=== PATIENT | male | born 1940 | race Caucasian/White ===

== ENCOUNTER 2024-04-03 10:09 | Outpatient (CLI) | payer MEDICARE, SELFPAY ==
--- NOTE | 2024-04-03 10:24 | XRR_ITS ---
PROCEDURE INFORMATION: Exam: XR Lumbosacral Spine Exam date and time: 04/03/2024 10:57 AM Age: 84 years old Clinical indication: Low back pain; Prior surgery; Surgery date: 1-6 months; Surgery type: Laminectomy; Additional info: Postlaminectomy syndrome TECHNIQUE: Imaging protocol: Radiologic exam of the lumbosacral spine. Views: 6 or more views. Including flexion and extension views. COMPARISON: No relevant prior studies available. FINDINGS: Bones/joints: Lower lumbar spine postsurgical change with intact bilateral posterior rods and hooks from L4-S1 without evidence of hardware complication. Mild posterior wedge morphology of the L5 vertebral body is age indeterminate but appears chronic. Otherwise normal vertebral body height. Normal alignment without spondylolisthesis or abnormal translation. Overall moderate to severe multilevel discovertebral and facet degenerative change throughout the lumbar spine greatest from L4-S1. Bilateral sacroiliac joint degenerative change. Soft tissues: Unremarkable. Vasculature: Aortoiliac atherosclerotic calcification. XR/XR lumbar spine 6V w [id number] IMPRESSION: 1. Mild chronic appearing posterior wedge morphology of the L5 vertebral body and posterior hardware from L4-S1 without evidence of hardware complication or acute bony abnormality. 2. 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
== END 2024-04-03 10:10 | disposition home or self-care (01) ==
PROVIDERS: PCP Family Medicine; Visit Provider Nurse Practitioner
DX: M96.1 Postlaminectomy syndrome, not elsewhere classified (principal); M51.36 Other intervertebral disc degeneration, lumbar region; M46.1 Sacroiliitis, not elsewhere classified; I70.0 Atherosclerosis of aorta
CPT/HCPCS: 72114